=== PATIENT | male | born 1950 | race Caucasian/White ===

== ENCOUNTER → 2023-12-23 08:44 | Outpatient (REF) | payer MEDICARE, OTHER, SELFPAY ==
[2023-12-23 10:16] LABS: % Basophils 0.9 % (0-2); % Eosinophils 3.5 % (0-6); % Immature Granulocytes 0.4 % (0-0.5); % Lymphocytes 36.7 % (20.5-51.1); % Monocytes 8.4 % (1.7-9.3); % Neutrophils 50.1 % (42.2-75.2); Absolute Basophils 0.1 10^3/uL (0-0.2); Absolute Eosinophils 0.2 10^3/uL (0-0.7); Absolute Lymphocytes 2.5 10^3/uL (1.2-3.4); Absolute Monocytes 0.6 10^3/uL (0.1-0.6); Absolute Neutrophils 3.5 10^3/uL (1.4-6.5); Hematocrit 35.6 % (39.0-52.0); Hemoglobin 12.2 g/dL (13.0-18.0); Mean Corp Hgb Conc. 34.3 g/dL (33.0-37.0); Mean Corpuscular Hgb 29.3 pg (27.0-31.0); Mean Corpuscular Volume 85.6 fL (80.0-94.0); Mean Platelet Volume 9.9 fL (7.4-10.4); Nucleated Red Blood Cells % 0 % (-); Platelet Count 242 10^3/uL (130-400); Red Blood Cell Count 4.16 10^6/uL (4.70-6.10); Red Cell Dist. Width 13.3 % (11.5-14.5); White Blood Cell Count 6.9 10^3/uL (4.8-10.8)
[2023-12-23 10:22] LABS: Iron 99 ug/dl (49-181)
[2023-12-23 10:31] LABS: Percent Saturation 27 % (20-50); Total Iron Binding Capacity 358 ug/dl (261-462)
[2023-12-23 11:03] LABS: Glycohemoglobin (HgbA1c) 7.1 % (4.0-5.6)
== END ==
LOC: REG 08:44
PROVIDERS: ATTENDING PHYSICIAN Internal Medicine
DX: R73.03 Prediabetes (principal); D64.9 Anemia, unspecified
CPT/HCPCS: 36415; 83036; 83540; 83550; 85025

== ENCOUNTER → 2024-07-10 07:57 | Outpatient (REF) | payer MEDICARE, OTHER, SELFPAY ==
[2024-07-10 11:55] LABS: C-Reactive Protein < 5.00 mg/L (0.0-10.00)
[2024-07-10 12:04] LABS: Erythrocyte Sed Rate 11 mm/hour (0-20)
[2024-07-11 12:18] LABS: Rheumatoid Agglutinin Less Than 10 IU (<10 IU)
[2024-07-12 07:35] LABS: CCP Antibody IgG/IgA 5 Units (0-19)
== END ==
LOC: REG 07:57
PROVIDERS: ATTENDING PHYSICIAN Internal Medicine; FAMILY PHYSICIAN Internal Medicine
DX: M25.541 Pain in joints of right hand (principal)
CPT/HCPCS: 36415; 73130; 85652; 86140; 86200; 86430

== ENCOUNTER → 2024-07-19 08:58 | Outpatient (REF) | payer MEDICARE, OTHER, SELFPAY ==
[2024-07-19 10:13] LABS: Glycohemoglobin (HgbA1c) 6.9 % (4.0-5.6)
[2024-07-19 11:18] LABS: Microalbumin, Random Urine 4.4 mg/dl (0.6-1.7); Microalbumin/creatinine Ratio 60.5 mg/g
== END ==
LOC: REG 08:58
PROVIDERS: ATTENDING PHYSICIAN Internal Medicine
DX: E78.00 Pure hypercholesterolemia, unspecified (principal); I10 Essential (primary) hypertension; E11.9 Type 2 diabetes mellitus without complications; Z00.00 Encounter for general adult medical examination without abnormal findings; D64.9 Anemia, unspecified
CPT/HCPCS: 36415; 82043; 82570; 83036

== ENCOUNTER → 2024-08-30 08:02 | Outpatient (REF) | payer MEDICARE, OTHER, SELFPAY ==
[2024-08-30 14:22] LABS: Lyme Antibody Screen, EIA Negative (Negative)
== END ==
LOC: REG 08:02
PROVIDERS: ATTENDING PHYSICIAN Internal Medicine; FAMILY PHYSICIAN Internal Medicine
DX: M25.541 Pain in joints of right hand (principal)
CPT/HCPCS: 36415; 86618

== ENCOUNTER → 2025-01-25 09:56 | Outpatient (REF) | payer MEDICARE, OTHER, SELFPAY ==
[2025-01-25 10:51] LABS: % Basophils 1.1 % (0-2); % Eosinophils 2.6 % (0-6); % Immature Granulocytes 0.5 % (0-0.5); % Lymphocytes 35.6 % (20.5-51.1); % Monocytes 9.9 % (1.7-9.3); % Neutrophils 50.3 % (42.2-75.2); Absolute Basophils 0.1 10^3/uL (0-0.2); Absolute Eosinophils 0.2 10^3/uL (0-0.7); Absolute Monocytes 0.8 10^3/uL (0.1-0.6); Absolute Neutrophils 4.2 10^3/uL (1.4-6.5); Hematocrit 38.2 % (39.0-52.0); Hemoglobin 12.6 g/dL (13.0-18.0); Mean Corpuscular Hgb 28.3 pg (27.0-31.0); Mean Corpuscular Volume 85.7 fL (80.0-94.0); Mean Platelet Volume 9.7 fL (7.4-10.4); Nucleated Red Blood Cells % 0 % (-); Platelet Count 255 10^3/uL (130-400); Red Blood Cell Count 4.46 10^6/uL (4.70-6.10); White Blood Cell Count 8.3 10^3/uL (4.8-10.8)
[2025-01-25 10:57] LABS: Urine Albumin 1+ (Neg - Trace); Urine Bilirubin Negative (Negative); Urine Character Clear (Clear); Urine Color Yellow; Urine Glucose Negative (Negative); Urine Ketone Negative (Negative); Urine Leukocyte Negative (Negative); Urine Nitrite Negative (Negative); Urine Occult Blood Negative (Negative); Urine Urobilinogen Negative (Neg - 1+)
[2025-01-25 11:16] LABS: ALT (SGPT) 43 U/L (0-50); AST (SGOT) 35 U/L (17-59); Albumin 4.5 g/dl (3.5-5.0); Alkaline Phosphatase 69 U/L (38-126); Blood Urea Nitrogen 15 mg/dl (9-20); Calcium 9.8 mg/dl (8.4-10.2); Carbon Dioxide 29 mmol/L (22-30); Chloride 103 mmol/L (98-107); Glucose 141 mg/dl (70-99); HDL Cholesterol 49 mg/dl; LDL Cholesterol, Calculated 62 mg/dl; Sodium 139 mmol/L (135-145); Total Bilirubin 0.5 mg/dl (0.2-1.3); Total Cholesterol 136 mg/dl (50-199); Total Protein 6.8 g/dl (6.3-8.2); Triglyceride 127 mg/dl (10-149); Very Low Density Lipoprotein 25 mg/dl (0-30); eGFR > 60.00
[2025-01-25 11:23] LABS: Urine Red Blood Cell 0-2 /HPF (0-2); Urine Squamous Cell None seen /LPF (Few); Urine White Cell 0-2 /HPF (0-5)
[2025-01-25 11:40] LABS: Microalbumin, Random Urine 3.6 mg/dl (0.6-1.7); Microalbumin/creatinine Ratio 42.2 mg/g
[2025-01-25 11:53] LABS: PSA, Total - Screen 3.12 ng/ml (0.0-4.0)
[2025-01-26 09:41] LABS: Glycohemoglobin (HgbA1c) 7.3 % (4.0-5.6)
== END ==
LOC: REG 09:56
PROVIDERS: ATTENDING PHYSICIAN Internal Medicine
DX: E78.00 Pure hypercholesterolemia, unspecified (principal); I10 Essential (primary) hypertension; E11.9 Type 2 diabetes mellitus without complications; D64.9 Anemia, unspecified; Z12.5 Encounter for screening for malignant neoplasm of prostate
CPT/HCPCS: 36415; 80053; 80061; 81003; 81015; 82043; 82570; 83036; 85025; G0103

== ENCOUNTER → 2025-05-09 11:18 | Outpatient (REF) | payer MEDICARE, OTHER, SELFPAY ==
[2025-05-09 12:20] LABS: Glycohemoglobin (HgbA1c) 7.1 % (4.0-5.6)
== END ==
LOC: OLABPV 11:18
PROVIDERS: ATTENDING PHYSICIAN Internal Medicine
DX: E11.9 Type 2 diabetes mellitus without complications (principal)
CPT/HCPCS: 36415; 83036

== ENCOUNTER → 2025-08-26 07:54 | Outpatient (REF) | payer MEDICARE, OTHER, SELFPAY ==
[2025-08-26 08:54] LABS: Hematocrit 35.9 % (39.0-52.0); Hemoglobin 11.9 g/dL (13.0-18.0); Mean Corp Hgb Conc. 33.1 g/dL (33.0-37.0); Mean Corpuscular Volume 85.3 fL (80.0-94.0); Nucleated Red Blood Cells % 0 % (-); Platelet Count 209 10^3/uL (130-400); Red Cell Dist. Width 13.4 % (11.5-14.5)
[2025-08-26 11:25] LABS: Glycohemoglobin (HgbA1c) 6.9 % (4.0-5.6)
== END ==
LOC: REG 07:54
PROVIDERS: ATTENDING PHYSICIAN Internal Medicine
DX: E78.00 Pure hypercholesterolemia, unspecified (principal); I10 Essential (primary) hypertension; E11.29 Type 2 diabetes mellitus with other diabetic kidney complication; D64.9 Anemia, unspecified; R80.9 Proteinuria, unspecified
CPT/HCPCS: 36415; 83036; 85025

== ENCOUNTER → 2025-10-28 12:00 | Outpatient (REF) | payer MEDICARE, OTHER, SELFPAY ==
[2025-10-28 12:39] LABS: Hematocrit 38.5 % (39.0-52.0); Hemoglobin 12.5 g/dL (13.0-18.0); Mean Corp Hgb Conc. 32.5 g/dL (33.0-37.0); Mean Corpuscular Volume 86.7 fL (80.0-94.0); Nucleated Red Blood Cells % 0 % (-); Platelet Count 236 10^3/uL (130-400); Red Cell Dist. Width 13.1 % (11.5-14.5); Reticulocyte Count 1.1 % (0.4-2.8)
[2025-10-28 15:13] LABS: Iron 106 ug/dl (49-181)
[2025-10-28 15:23] LABS: Total Iron Binding Capacity 348 ug/dl (261-462)
== END ==
LOC: OLABPV 12:00
PROVIDERS: ATTENDING PHYSICIAN Internal Medicine
DX: I10 Essential (primary) hypertension (principal); E78.00 Pure hypercholesterolemia, unspecified; E11.29 Type 2 diabetes mellitus with other diabetic kidney complication; D64.9 Anemia, unspecified; R80.9 Proteinuria, unspecified
CPT/HCPCS: 36415; 83540; 83550; 85025; 85045; 85652